=== PATIENT | male | born 1955 | race Caucasian/White ===

== ENCOUNTER 2018-10-08 17:50 | Inpatient (IN) | payer BC, OTHER ==
[~2018-10-08] VITALS: Ht 182.9 cm; Wt 152.4 kg
[2018-10-08] VITALS (8 sets, daily range): BP systolic 77–131; BP diastolic 45–81
[~2018-10-08 17:50] MED LIST: AMIODARONE (OMNICELL DRIP KIT) 150 MG/3 ML IV ONE; AMIODARONE 450 MG/9 ML (CORDARONE) VIAL IV ONE; D5W 250 ML (EXCEL) BAG IV ONE; HEParin (CATH LAB) 2,000 UNIT/1,000 ML BAG IV ONE; LIDOCAINE 1% INJ 20 ML 20 ML VIAL INJ ONE; NS 1000 ML IV BAG IV ONE
[2018-10-08 18:19] LABS: BASOPHILS % (AUTO) 0 % (0-10); EOSINOPHILS # (AUTO) 0.2 10^3/uL (0.0-0.3); EOSINOPHILS % (AUTO) 2 % (0-10); HEMATOCRIT 47 % (40-54); HEMOGLOBIN 15.9 G/DL (13.3-17.7); LYMPHOCYTES # (AUTO) 3.2 X 10^3 (1.0-4.0); LYMPHOCYTES % (AUTO) 37 % (12-44); MEAN CORPUSCULAR HEMOGLOBIN 30 PG (25-34); MEAN CORPUSCULAR HGB CONC 34 G/DL (32-36); MEAN CORPUSCULAR VOLUME 87 FL (80-99); MEAN PLATELET VOLUME 9.9 FL (7.4-10.4); MONOCYTES # (AUTO) 0.7 X 10^3 (0.0-1.0); MONOCYTES % (AUTO) 8 % (0-12); NEUTROPHILS # (AUTO) 4.6 X 10^3 (1.8-7.8); NEUTROPHILS % (AUTO) 52 % (42-75); PLATELET COUNT 243 10^3/uL (130-400); WHITE BLOOD COUNT 8.7 10^3/uL (4.3-11.0)
[2018-10-08 18:30] LABS: PROTHROMBIN TIME PATIENT 13.5 SEC (12.2-14.7)
--- NOTE | 2018-10-08 18:30 | Diagnostic Imaging Report ---
INDICATION: Chest pain. FINDINGS: Portable chest. Lungs are well-aerated and clear. Heart is not enlarged. There is no pulmonary edema. No pneumothorax or pleural effusion. No bony abnormalities. IMPRESSION: Normal portable chest. Dictated by: Dictated on workstation # [id number]
[2018-10-08 18:39] LABS: ALANINE AMINOTRANSFERASE 23 U/L (0-55); ALBUMIN 4.3 GM/DL (3.2-4.5); ALKALINE PHOSPHATASE 87 U/L (40-136); AMYLASE 38 U/L (25-125); BILIRUBIN,TOTAL 0.8 MG/DL (0.1-1.0); BUN/CREATININE RATIO 15; CALCIUM 9.5 MG/DL (8.5-10.1); CARBON DIOXIDE 23 MMOL/L (21-32); CHLORIDE 101 MMOL/L (98-107); CREATININE SERUM 0.89 MG/DL (0.60-1.30); GFR ESTIMATED > 60; GLUCOSE 130 MG/DL (70-105); LIPASE 17 U/L (8-78); POTASSIUM 3.9 MMOL/L (3.6-5.0); SODIUM 137 MMOL/L (135-145); TOTAL PROTEIN 7.5 GM/DL (6.4-8.2)
[2018-10-08 18:45] LABS: MYOGLOBIN SERUM 106.6 NG/ML (10.0-92.0)
[2018-10-08] MEDS ORDERED: NITROGLYCERIN 0.4 MG SL TABS BTL 25'S SL ONE (19:00)
[2018-10-08] MEDS ORDERED: EPINEPHrine 0.1 MG/ML 10 ML (HOSPIRA) SYR INJ ONE (19:05)
--- NOTE | 2018-10-08 19:05 | NUR ---
AFTER ADMINISTERING PATIENT NITRO SL PT STATES FEELING DIZZY. PT BIJAN IN 49-50. OXYGEN NC APPLIED. HOB FLAT. AFTER A MIN PT HR STARTED INCREASING. PT STATED DIZZINESS GETTING BETTER. STATES NO CHANGE IN PAIN.
--- NOTE | 2018-10-08 19:15 | ED Chest Pain ---
General Chief Complaint: Cardiac/General Problems Stated Complaint: CP Nursing Triage Note: pt complaint of chest pain on/off today. new onset diabetic Nursing Sepsis Screen: No Definite Risk Source: patient, EMS Exam Limitations: no limitations History of Present Illness Date Seen by Provider: Oct 08, 2018 Time Seen by Provider: 17:58 Initial Comments This 63-year-old gentleman presents to the emergency room via EMS with complaints of chest pain. He reports having this mild central chest pain for several years. This morning he had an episode of chest pain that started in the shower. It resolved with rest. He went to his primary care provider, Dr. Carl Tsyon, but did not mention the chest pain because it had resolved by that time. At his doctor's appointment he was diagnosed with diabetes based on an elevated A1c. This evening he was speaking with a friend on the phone when the pain returned. The pain is in his central chest and also involves the jaw and bilateral upper arms. Patient was given aspirin and nitroglycerin by EMS. His initial pain was rated as 4-5. After nitroglycerin he rated his pain as 2. It then dissipated to zero. Patient admits to having a problem with anxiety. He has been treated for a Xanax diction the past. He currently takes Klonopin twice a day. He has never had any type of cardiac workup. He recently quit smoking and now vapes. Allergies and Home Medications Allergies Coded Allergies: Penicillins (Unverified Allergy, Mild, 10/08/18) clindamycin (Unverified Allergy, Mild, 10/08/18) Patient Home Medication List Home Medication List Reviewed: Yes Review of Systems Review of Systems Constitutional: no symptoms reported EENTM: No Symptoms Reported Respiratory: No Symptoms Reported Cardiovascular: See HPI Gastrointestinal: No Symptoms Reported Genitourinary: No Symptoms Reported Musculoskeletal: no symptoms reported Skin: no symptoms reported Psychiatric/Neurological: No Symptoms Reported Endocrine: No Symptoms Reported Hematologic/Lymphatic: No Symptoms Reported Past Nztwjph-Rlausl-Lonkjo Hx Past Med/Social Hx: Reviewed and Corrections made Patient Social History Recent Foreign Travel: No Contact w/Someone Who Travel: No Recent Infectious Disease Expo: No Past Medical History Surgeries: Yes Orthopedic (Knee arthroscopy), Tonsillectomy Respiratory: No Cardiac: Yes Hypertension Neurological: No Reproductive Disorders: No Genitourinary: No Gastrointestinal: Yes Gastroesophageal Reflux Musculoskeletal: No Endocrine: Yes Diabetes, Non-Insulin dep HEENT: No Cancer: No Did You Recieve Any Treatments: No Psychosocial: Yes Anxiety Integumentary: No Physical Exam Vital Signs Vital Signs - First Documented 10/08/18 10/08/18 17:58 19:05 Temp 98.9 Pulse 93 Resp 18 B/P (MAP) 153/103 (120) Pulse Ox 98 O2 Delivery Room Air O2 Flow Rate 2.00 Capillary Refill : Less Than 3 Seconds Height, Weight, BMI Height: 5'8.00" Weight: 200lbs. oz. 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 Skin: Normal Color, Warm/Dry Critical Care Note Critical Care Start Time: 20:20 Stop Time: 20:44 Total Time (minutes) 24 Progress/Results/Core Measures Results/Orders Lab Results Laboratory Tests Test 10/08/18 18:08 Range/Units White Blood Count 8.7 4.3-11.0 10^3/uL Red Blood Count 5.39 4.35-5.85 10^6/uL Hemoglobin 15.9 13.3-17.7 G/DL Hematocrit 47 40-54 % Mean Corpuscular Volume 87 80-99 FL Mean Corpuscular Hemoglobin 30 25-34 PG Mean Corpuscular Hemoglobin Concent 34 32-36 G/DL Red Cell Distribution Width 13.0 10.0-14.5 % Platelet Count 243 130-400 10^3/uL Mean Platelet Volume 9.9 7.4-10.4 FL Neutrophils (%) (Auto) 52 42-75 % Lymphocytes (%) (Auto) 37 12-44 % Monocytes (%) (Auto) 8 0-12 % Eosinophils (%) (Auto) 2 0-10 % Basophils (%) (Auto) 0 0-10 % Neutrophils # (Auto) 4.6 1.8-7.8 X 10^3 Lymphocytes # (Auto) 3.2 1.0-4.0 X 10^3 Monocytes # (Auto) 0.7 0.0-1.0 X 10^3 Eosinophils # (Auto) 0.2 0.0-0.3 10^3/uL Basophils # (Auto) 0.0 0.0-0.1 10^3/uL Prothrombin Time 13.5 12.2-14.7 SEC INR Comment 1.0 0.8-1.4 Activated Partial Thromboplast Time 30 24-35 SEC D-Dimer 0.46 0.00-0.49 UG/ML Sodium Level 137 135-145 MMOL/L Potassium Level 3.9 3.6-5.0 MMOL/L Chloride Level 101 98-107 MMOL/L Carbon Dioxide Level 23 21-32 MMOL/L Anion Gap 13 5-14 MMOL/L Blood Urea Nitrogen 13 7-18 MG/DL Creatinine 0.89 0.60-1.30 MG/DL Estimat Glomerular Filtration Rate > 60 BUN/Creatinine Ratio 15 Glucose Level 130 H 70-105 MG/DL Calcium Level 9.5 8.5-10.1 MG/DL Corrected Calcium 9.3 8.5-10.1 MG/DL Magnesium Level 2.0 1.8-2.4 MG/DL Total Bilirubin 0.8 0.1-1.0 MG/DL Aspartate Amino Transf (AST/SGOT) 26 5-34 U/L Alanine Aminotransferase (ALT/SGPT) 23 0-55 U/L Alkaline Phosphatase 87 40-136 U/L Myoglobin 106.6 H 10.0-92.0 NG/ML Troponin I < 0.028 <0.028 NG/ML B-Type Natriuretic Peptide 17.7 <100.0 PG/ML Total Protein 7.5 6.4-8.2 GM/DL Albumin 4.3 3.2-4.5 GM/DL Amylase Level 38 25-125 U/L Lipase 17 8-78 U/L My Orders Orders - DOLLY STOLL MD Nitroglycerin 0.4 Mg Btl 25's (Nitrostat (10/08/18 19:00) Dopamine Drip (Dopamine Drip) (10/08/18 20:45) Morphine Injection (Morphine Injection (10/08/18 21:00) Medications Given in ED Current Medications Medications Dose Ordered Sig/Guillaume Route Start Time Stop Time Status Last Admin Dose Admin Heparin Sodium (Porcine) 10,000 unit STK-MED ONCE .ROUTE 10/08/18 20:38 10/08/18 20:41 DC 10/08/18 20:38 10,000 UNIT Nitroglycerin 0.4 mg STK-MED ONCE SL 10/08/18 19:00 10/08/18 19:03 DC 10/08/18 19:00 0.4 MG Ondansetron HCl 4 mg STK-MED ONCE .ROUTE 10/08/18 20:26 10/08/18 20:28 DC 10/08/18 20:27 4 MG Sodium Chloride 1,000 ml @ ud STK-MED ONCE .ROUTE 10/08/18 20:38 10/08/18 20:41 DC 10/08/18 20:38 1,000 MLS/HR Sodium Chloride 1,000 ml @ ud STK-MED ONCE .ROUTE 10/08/18 20:50 10/08/18 20:53 DC 10/08/18 20:50 1,000 MLS/HR Vital Signs/I&O 10/08/18 10/08/18 10/08/18 10/08/18 17:58 19:05 20:45 20:50 Temp 98.9 Pulse 93 110 110 Resp 18 14 B/P (MAP) 153/103 (120) 76/43 77/45 Pulse Ox 98 92 91 O2 Delivery Room Air Nasal Cannula Nasal Cannula O2 Flow Rate 2.00 5.00 10/08/18 10/08/18 10/08/18 20:55 20:56 21:00 Pulse 113 124 126 Resp 16 16 B/P (MAP) 77/45 (56) 107/52 107/52 (70) Pulse Ox 92 91 O2 Delivery Room Air Room Air Blood Pressure Mean: 120 Progress Progress Note #1: Time: 19:10 Progress Note Patient reported improvement in his symptoms with nitroglycerin initially. At 18:54 he had some mild discomfort primarily in the bilateral arms, jaw, and back. He rates the discomfort as 3-4/10. A second nitroglycerin was given. He felt lightheaded and developed some bradycardia down to around 48 after the second dose of nitroglycerin. However, did not seem to improve his discomfort. Progress Note #2: Time: 20:00 Progress Note Repeat nitroglycerin caused lightheadedness and a drop in heart rate down to the upper 40s. Patient was uncomfortable with this. The nitroglycerin did not improve his discomfort in his arms, back, and jaw. I discussed the case with Dr. Hughes. We are in agreement admission for observation is most appropriate for this patient given his risk factors. He is to be nothing by mouth after midnight in preparation for further testing. Admission discussed with patient who is agreeable. I will order his home medications for him to continue taking. Dr. Lizama was also contacted and was agreeable with admission to the hospitalist service. Progress Note #3: Time: 20:36 Progress Note I called to patient room at 20:20 as patient became unresponsive. Rhythm on the monitor suggested ventricular fibrillation. Patient lost pulse and was unresponsive. CPR was initiated. Patches were applied and shock was administered at 200 J at 20:22. CPR continued and epinephrine 1 mg was administered. Patient did eventually wake and regained an organized rhythm. Pulse was palpable and blood pressures were measurable at 20:24. EKG was obtained after CPR and showed sinus tachycardia with ST elevation [place]. Patient was alert and oriented by 20:26. Dr. Hughes was called during the code and again after EKG interpretation. Monitoring Tech was activated immediately upon noting the ST elevation. Patient was dry heaving upon waking after CPR. Zofran 8 mg IV was administered. Dr. Hughes was present by 20:35. Progress Note #4: Time: 20:[address] Hughes is present with patient. He has become hypotensive but is still awake and alert. IV fluids are infusing. Dopamine drip has been initiated. Monitoring Tech has been activated. Patient will be taken promptly to Monitoring Tech when team is ready. Dr. Hughes has assumed care of the patient. Initial ECG Impression Date: Oct 08, 2018 Initial ECG Impression Time: 17:53 Initial ECG Rate: 90 Initial ECG Rhythm: Normal Sinus Initial ECG Intervals: Normal Initial ECG Impression: Normal Comment Normal sinus rhythm with no ST elevation or depression. No abnormal intervals or axis deviation. EKG : EKG Time: 20:29 Rate: 113 Rhythm: S.Tach Comment Sinus tachycardia with ST elevation. Acute [place]. Diagnostic Imaging Diagonstic Imaging: Xray Plain Films/CT/US/NM/MRI: chest Departure Communication (Admissions) Time/Spoke to Admitting Phy: 19:45 Dr. Richardson Time/Spoke to Consulting Phy: 19:40 Dr. Hughes Impression Primary Impression: ST elevation [place] (STEMI) Qualified Codes: I21.3 - ST elevation (STEMI) myocardial infarction of unspecified site Additional Impressions: Chest pain Qualified Codes: R07.9 - Chest pain, unspecified Ventricular fibrillation Disposition: 09 ADMITTED INPATIENT Condition: Improved Admissions Decision to Admit Reason: Admit from ER (General) Decision to Admit/Date: Oct 08, 2018 Time/Decision to Admit Time: 19:40 Departure-Patient Inst. Referrals: UNKNOWN (PCP/Family) Primary Care Physician DOLLY STOLL MD Oct 08, 2018 19:15
[2018-10-08] MEDS ORDERED: ONDANSETRON 4 MG/2 ML (SDV) Z0FRAN ONE ×2 (20:26→21:44)
[2018-10-08] MEDS ORDERED: HEParin 1000 UNIT/ML (10ML VIAL) FOR BOLUS ONE ×2 (20:38→21:05)
[2018-10-08] MEDS ORDERED: NS IV 1000 ML 1,000 ML ONE ×2 (20:38→20:50)
[2018-10-08] MEDS ORDERED: DOPamine DRIP 250 ML IV ONE (20:43)
[2018-10-08] MEDS: DOPamine DRIP 250 ML IV SCH ×5 (20:45→21:57)
--- NOTE | 2018-10-08 20:56 | NUR ---
PT FEELING "FUNNY IN CHEST -PRESSURE" DOPAMIN DECREASED [address] NOTIFIED. MORPHINE ORDERED.
[2018-10-08] MEDS ORDERED: morphine INJ 10 MG/ML 1ML (SYR OR VIAL) IVP STA (21:00)
--- NOTE | 2018-10-08 21:02 | Consultation-Cardiology ---
HPI-Cardiology Cardiology Consultation Date of Consultation 10/08/18 Date of Admission Time Seen by Provider: 20:58 Indication: chest pain HPI 63 years old gentleman recently diagnosed with diabetes mellitus, history of hypertension and tobaccoism. Has been having recurrent chest pain for the past year on and off. Became worse today and called ambulance and brought to the emergency room, given sublingual nitroglycerin with appropriate relief of his chest pain. He was waiting for bed in the emergency room when he had an episode of syncope and had a ventricular tachycardia, received epinephrine and chest compression and a shock. Restored sinus rhythm, patient was having nausea and vomiting. Denied any active chest pain, was diaphoretic, postcode EKG showed ST elevation in the inferior lead which was not present on arrival to the emergency room Home Medications & Allergies Allergies: Coded Allergies: Penicillins (Unverified Allergy, Mild, 10/08/18) clindamycin (Unverified Allergy, Mild, 10/08/18) Home Medication List Reviewed: Yes [id number] Hx Patient Social History Marital Status: Employed/Student: employed Recent Foreign Travel: No Recent Infectious Disease Expo: No Past Medical History as described below Family Medical History Family Medical Hx family history of heart disease Review of Systems Constitutional: see HPI, diaphoresis EENTM: see HPI, no symptoms reported Respiratory: see HPI; No cough, No dyspnea on exertion, No hemoptysis, No orthopnea, No phlegm, No short of breath, No stridor, No wheezing, No other Cardiovascular: see HPI, chest pain; No edema, No Hx of Intervention, No palpitations; syncope; No vascular heart diseas, No other Gastrointestinal: no symptoms reported, see HPI Genitourinary: no symptoms reported, see HPI Musculoskeletal: no symptoms reported, see HPI Skin: no symptoms reported, see HPI Psychiatric/Neurological: No Symptoms Reported, See HPI Reviewed Test Results Reviewed Test Results Lab Laboratory Tests Test 10/08/18 18:08 Range/Units White Blood Count 8.7 4.3-11.0 10^3/uL Red Blood Count 5.39 4.35-5.85 10^6/uL Hemoglobin 15.9 13.3-17.7 G/DL Hematocrit 47 40-54 % Mean Corpuscular Volume 87 80-99 FL Mean Corpuscular Hemoglobin 30 25-34 PG Mean Corpuscular Hemoglobin Concent 34 32-36 G/DL Red Cell Distribution Width 13.0 10.0-14.5 % Platelet Count 243 130-400 10^3/uL Mean Platelet Volume 9.9 7.4-10.4 FL Neutrophils (%) (Auto) 52 42-75 % Lymphocytes (%) (Auto) 37 12-44 % Monocytes (%) (Auto) 8 0-12 % Eosinophils (%) (Auto) 2 0-10 % Basophils (%) (Auto) 0 0-10 % Neutrophils # (Auto) 4.6 1.8-7.8 X 10^3 Lymphocytes # (Auto) 3.2 1.0-4.0 X 10^3 Monocytes # (Auto) 0.7 0.0-1.0 X 10^3 Eosinophils # (Auto) 0.2 0.0-0.3 10^3/uL Basophils # (Auto) 0.0 0.0-0.1 10^3/uL Prothrombin Time 13.5 12.2-14.7 SEC INR Comment 1.0 0.8-1.4 Activated Partial Thromboplast Time 30 24-35 SEC D-Dimer 0.46 0.00-0.49 UG/ML Sodium Level 137 135-145 MMOL/L Potassium Level 3.9 3.6-5.0 MMOL/L Chloride Level 101 98-107 MMOL/L Carbon Dioxide Level 23 21-32 MMOL/L Anion Gap 13 5-14 MMOL/L Blood Urea Nitrogen 13 7-18 MG/DL Creatinine 0.89 0.60-1.30 MG/DL Estimat Glomerular Filtration Rate > 60 BUN/Creatinine Ratio 15 Glucose Level 130 H 70-105 MG/DL Calcium Level 9.5 8.5-10.1 MG/DL Corrected Calcium 9.3 8.5-10.1 MG/DL Magnesium Level 2.0 1.8-2.4 MG/DL Total Bilirubin 0.8 0.1-1.0 MG/DL Aspartate Amino Transf (AST/SGOT) 26 5-34 U/L Alanine Aminotransferase (ALT/SGPT) 23 0-55 U/L Alkaline Phosphatase 87 40-136 U/L Myoglobin 106.6 H 10.0-92.0 NG/ML Troponin I < 0.028 <0.028 NG/ML B-Type Natriuretic Peptide 17.7 <100.0 PG/ML Total Protein 7.5 6.4-8.2 GM/DL Albumin 4.3 3.2-4.5 GM/DL Amylase Level 38 25-125 U/L Lipase 17 8-78 U/L Physical Exam Vital Signs Vital Signs - First Documented 10/08/18 17:58 Temp 98.9 Pulse 93 Resp 18 B/P (MAP) 153/103 (120) Pulse Ox 98 O2 Delivery Room Air Capillary Refill : Less Than 3 Seconds Height, Weight, BMI Height: 5'8.00" Weight: 200lbs. oz. [id number]; BMI Method:Estimated General Appearance: No Apparent Distress, WD/WN Eyes: Bilateral Eye Normal Inspection, Bilateral Eye PERRL, Bilateral Eye EOMI HEENT: PERRL/EOMI, TMs Normal, Normal ENT Inspection, Pharynx Normal Neck: Full Range of Motion, Normal Inspection, Non Tender, Supple, Carotid Bruit Respiratory: Chest Non Tender, Lungs Clear, Normal Breath Sounds, No Accessory Muscle Use, No Respiratory Distress Cardiovascular: Regular Rate, Rhythm, No Edema, No Gallop, No JVD, No Murmur, Normal Peripheral Pulses Gastrointestinal: Normal Bowel Sounds, No Organomegaly, No Pulsatile Mass, Non Tender, Soft Back: Normal Inspection, No CVA Tenderness, No Vertebral Tenderness Extremity: Normal Capillary Refill, Normal Inspection, Normal Range of Motion, Non Tender, No Calf Tenderness, No Pedal Edema Neurologic/Psychiatric: Alert, Oriented x3, No Motor/Sensory Deficits, Normal Mood/Affect Skin: Normal Color, Warm/Dry Lymphatic: No Adenopathy A/P-Cardiology Admission Diagnosis Chest pain Ventricular tachycardia Hypotensive shock, cardiogenic shock Diabetes mellitus Assessment/Plan Chest pain, waxing and waning, worse today, unstable angina, status post cardiac arrest with ventricular tachycardia and shock, had ST elevation post code. Planning to proceed with emergency cardiac catheterization, given 5000 units of heparin, received aspirin by EMS Sudden cardiac , ventricular tachycardia, status post chest compression, epinephrine and shock. Restored sinus rhythm. Diaphoresis and shortness of breath post code, continue to monitor at this time Hypotensive shock, cardiogenic shock, receiving IV fluids, started on dopamine drip History of hypertension untreated. Diabetes mellitus, diagnosed today. Hyperlipidemia, we will initiate statin Obesity, BMI 30, discussed weight loss and exercise after managing his AK Questionable underlying sleep apnea, patient reported that he was tested in the past and it was negative CAROLYN GALAVIZ MD Oct 08, 2018 21:02
--- NOTE | 2018-10-08 21:03 | Cardiac Procedure Note-CS/ASA ---
Pre-Procedure Note Pre-Op Procedure Note H&P Reviewed The H&P was reviewed, patient examined and no changes noted. Date H&P Reviewed: Oct 08, 2018 Time H&P Reviewed: 21:02 Conscious Sedation Pre-Proced Time 21:02 ASA Score 3 For ASA 3 and 4: Consider anesthesia and medical clearance. Also, for patients with a history of failed moderate sedation consider anesthesia. Airway Lungs Heart ASA score ASA 1: a normal healthy patient ASA 2: a patient with a mild systemic disease (mid diabetes, controlled hypertension, obesity x ASA 3: a patient with a severe systemic disease that limits activity (angina , COPD, prior Myocardial infarction) ASA 4: a patient with an incapacitating disease that is a constant threat to life (CHF, renal failure) ASA 5: a moribund patient not expected to survive 24 hrs. (ruptured aneurysm) ASA 6: a declared brain- patient whose organs are being harvested. For emergent operations, add the letter E after the classification Mallampati Classification Grade 3 Sedation Plan Analgesia, Amnesia, Plan communicated to team members, Discussed options with patient/fam, Discussed risks with patient/fam The patient is an appropriate candidate to undergo the planned procedure, sedation, and anesthesia. The patient immediately re-assessed prior to indication. CAROLYN GALAVIZ MD Oct 08, 2018 21:03
[2018-10-08] MEDS ORDERED: MIDAZOLAM 5 MG/5 ML (VERSED) VIAL ONE (21:05)
[2018-10-08] MEDS ORDERED: fentaNYL INJECTION 100 MCG/2 ML AMP ONE (21:05)
[2018-10-08] MEDS ORDERED: EPTIFIBATIDE BOLUS 20 ML IV ONE (21:28)
[2018-10-08] MEDS ORDERED: NS (IVPB) 250 ML ONE (21:35)
[2018-10-08] MEDS ORDERED: niCARdipine 25 MG/10 ML (CARDENE) AMP IV ONE (21:35)
[2018-10-08] MEDS ORDERED: ASPIRIN 325 MG (5 GR) TABLET ONE (21:53)
[2018-10-08] MEDS ORDERED: TICAGRELOR 90 MG TABLET (BRILINTA) PO ONE (21:53)
[2018-10-08] MEDS ORDERED: NS IV 1000 ML 1,000 ML IV SCH (21:55)
[2018-10-08] MEDS ORDERED: PANTOPRAZOLE 40 MG (PROTONIX) VIAL IV ONE (22:00)
[2018-10-08] MEDS ORDERED: PATIENT MAY USE OWN MEDS, ALL PO SCH (22:00)
--- NOTE | 2018-10-08 22:07 | Cardiac Cath Report ---
Cardiac Cath Report Physician (s)/Marine Engine Machinist (s) Physician CAROLYN GALAVIZ MD Pre-Procedure Diagnosis Pre-Procedure Diagnosis: acute myocardial infarction Post-Procedure Note Procedure Start Date: Oct 08, 2018 Name of Procedure: left heart catheterization Left ventriculogram Stent to the right coronary artery Findings/Procedure Note PROCEDURE NOTE: 63 years old gentleman with recently diagnosed diabetes mellitus has been having stuttering chest pain, had significant chest pain this evening, called 911 and given nitroglycerin with appropriately for his chest pain upon arrival to the emergency room. He was admitted to be monitored, EKG and cardiac enzymes did not show any acute abnormality. While patient in the emergency room waiting for his bed on the floor he had a syncope with ventricular tachycardia and cardiac arrest CODE CEZAR was called, given epinephrine and received chest compression and a shock lasted within 2 minutes and restored pulse, had significant nausea and vomiting. EKG showed ST elevation no onset occurred at 820 p.m. Catheter lab team was activated, acute MS team was activated. After explaining the procedure to the patient, all pros and cons were explained , all questions were answered. The patient signed the consent and then he was placed on the cardiac catheterization laboratory. Groin was prepped SL fashion local anesthesia was used. Sheath placed in the Right femoral artery. [place] right and left catheter were used to access the coronary system. Pigtail was used to access the left ventricular cavity. Left ventriculogram was done at the end of the procedure Patient received 5000 units of heparin in the emergency room, double bolus Integrilin in the catheter lab, noted to have total occlusion of the right coronary artery I was able to cross the lesion with difficulty in the midright coronary artery predilatation with 2.5 balloon was done then I deployed a 2.5 23 mm Martha stent expanded distally to 2.75 mm and proximally to 3.2 mm. At the proximal portion of the right coronary artery there was an area of 95 percent stenosis I deployed 3.012 mm Martha stent expanded with noncompliant balloon to 3.6 mm with excellent results, slow flow was noted, given Cardene with appropriate relief. At the end of the procedure the sheath was removed. Closure device was used FINDINGS: Hemodynamics LV 84/15, end-diastolic pressure of 15 Aorta 88/63 mean of 58 and a significant gradient ANATOMY: Left Main is free of obstructive disease Left Anterior Descending is mildly tortuous with mild disease nonobstructive disease Left Circumflex is moderate in size with mild disease nonobstructive disease Right Coronory Artery is dominant artery with total occlusion at the midportion and severe stenosis proximally successful deployment of Martha stent 2.523 mm expanded to 2.6 mm distally and 3.2 mm proximally, deployment at the proximal right coronary artery of Martha stent 312 mm expanded to 3.6 mm with excellent results. The artery tapered down into a small artery distally. Onset of symptom with ventricular tachycardia and ST elevation was at 820 p.m. establishment of flow with balloon angioplasty was at 934 p.m. dose or to establishment of flow is 74 minutes LV Gram was done showed dilated left ventricle with preserved systolic function estimated ejection fraction 50 percent CONCLUSION: 1. Cardiogenic shock with acute ST elevation myocardial infarctions and occlusion of the right coronary artery and ventricular tachycardia required shock and epinephrine 2. Total occlusion of the right coronary artery at the midportion and severe stenosis proximally deployment of maximal stent 3.012 mm Martha expanded to 3.6 mm and at the midportion Martha 2.523 mm expanded distally to 2.6 mm approximately 3.2 mm with excellent results slow flow distally given Cardene with good results 3. Mild disease in the LAD and circumflex artery 4. Prominent left ventricle with preserved systolic pressure estimated ejection fraction 50 percent DISCUSSION AND RECOMMENDATION: I will continue maximizing medical therapy Anesthesia Type: Conscious Sedation Estimated blood loss (mL): 25 ml Contrast Amount: 123 ml Total Radiation Dose: 1437 mGy Post-Procedure Diagnosis Post-operative diagnosis: Acute myocardial infarction Cardiogenic shock Ventricular tachycardia Coronary artery disease CAROLYN GALAVIZ MD Oct 08, 2018 22:07
[2018-10-08] MEDS ORDERED: METOCLOPRAMIDE INJ 10 MG/2 ML (REGLAN) ONE (22:14)
[2018-10-08] MEDS: AMIODARONE INJECTION 450 MG in D5W IV SOLUTION (EXCEL) 250 ML IV SCH (22:41)
[2018-10-09] VITALS (26 sets, daily range): BP systolic 102–168; BP diastolic 61–115
[2018-10-09] MEDS ORDERED: clonazePAM 1 MG (KlonoPIN) TAB PO ONE (00:45)
[2018-10-09] MEDS ORDERED: PANTOPRAZOLE 40 MG (PROTONIX) TAB PO ONE (01:14)
[2018-10-09] MEDS ORDERED: PANTOPRAZOLE 40 MG (PROTONIX) VIAL ONE (01:16)
[2018-10-09 04:05] LABS: BASOPHILS % (AUTO) 0 % (0-10); EOSINOPHILS % (AUTO) 0 % (0-10); HEMATOCRIT 42 % (40-54); HEMOGLOBIN 14.8 G/DL (13.3-17.7); LYMPHOCYTES % (AUTO) 9 % (12-44); MEAN CORPUSCULAR HEMOGLOBIN 31 PG (25-34); MEAN CORPUSCULAR HGB CONC 35 G/DL (32-36); MEAN CORPUSCULAR VOLUME 87 FL (80-99); MEAN PLATELET VOLUME 9.7 FL (7.4-10.4); MONOCYTES # (AUTO) 0.5 X 10^3 (0.0-1.0); MONOCYTES % (AUTO) 5 % (0-12); NEUTROPHILS # (AUTO) 9.6 X 10^3 (1.8-7.8); NEUTROPHILS % (AUTO) 86 % (42-75); PLATELET COUNT 252 10^3/uL (130-400); RED CELL DISTRIBUTION WIDTH 13.3 % (10.0-14.5); WHITE BLOOD COUNT 11.2 10^3/uL (4.3-11.0)
[2018-10-09 04:27] LABS: BUN/CREATININE RATIO 16; CALCIUM 8.4 MG/DL (8.5-10.1); CARBON DIOXIDE 20 MMOL/L (21-32); CHLORIDE 105 MMOL/L (98-107); CHOLESTEROL 120 MG/DL (< 200); CREATININE SERUM 1.03 MG/DL (0.60-1.30); GFR ESTIMATED > 60; GLUCOSE 222 MG/DL (70-105); HDL CHOLESTEROL 40 MG/DL (40-60); MAGNESIUM 1.8 MG/DL (1.8-2.4); PHOSPHORUS 2.6 MG/DL (2.3-4.7); POTASSIUM 4.5 MMOL/L (3.6-5.0); SODIUM 135 MMOL/L (135-145); TRIGLYCERIDES 91 MG/DL (<150); VLDL CHOLESTEROL 18 MG/DL (5-40)
--- NOTE | 2018-10-09 05:59 | Pulmonary Consultation ---
History of Present Illness History of Present Illness Date of Consultation 10/09/18 05:52 Time Seen by Provider: 05:52 Date of Admission Reason for Visit: chest pain History of Present Illness 63yo with hx of DM, HTN, tobacco use, vapor cig use presented to ED secondary to CP worsening over the last 24hours. While in ED he had an episode of Vtach and syncope. He was given a dose of epi and chest compressions were done. PT regained ROSC, EKG showed a STEMI and he was taken to [facility]. I am consulted for ICU management. Allergies and Home Medications Allergies Coded Allergies: Penicillins (Unverified Allergy, Mild, 10/08/18) clindamycin (Unverified Allergy, Mild, 10/08/18) Past Zhguivt-Rwnnqi-Aodbji Hx Past Med/Social Hx: Reviewed and Corrections made Patient Social History Alcohol Use: Denies Use Recreational Drug Use: No Recent Foreign Travel: No Contact w/Someone Who Travel: No Recent Infectious Disease Expo: No Immunizations Up To Date Date of Influenza Vaccine: Jun 16, 2018 Past Medical History Surgeries: Yes Orthopedic (Knee arthroscopy), Tonsillectomy Respiratory: No Cardiac: No Hypertension Neurological: No Reproductive Disorders: No Genitourinary: No Gastrointestinal: Yes Gastroesophageal Reflux Musculoskeletal: No Endocrine: Yes Diabetes, Non-Insulin dep HEENT: No Cancer: No Did You Recieve Any Treatments: No Psychosocial: Yes Anxiety, Depression Integumentary: No Blood Disorders: No Sepsis Event Evaluation Height, Weight, BMI Height: 6'0.00" Weight: 335lbs. 0.0oz. 151.751642cx; 45.4 BMI Method:Estimated Exam Exam Vital Signs Date Time Temp Pulse Resp B/P (MAP) Pulse Ox O2 Delivery O2 Flow Rate FiO2 10/09/18 05:00 72 32 136/94 (108) 93 Room Air 10/09/18 04:00 79 22 123/81 (95) 92 Room Air 10/09/18 03:00 76 13 105/71 (82) 95 Room Air 10/09/18 02:40 75 21 111/82 (92) 97 Room Air 10/09/18 02:00 75 21 114/80 (91) 95 Nasal Cannula 3.00 10/09/18 01:30 75 16 110/79 (89) 96 Nasal Cannula 3.00 10/09/18 01:00 78 10/09/18 01:00 78 15 102/76 (85) 95 Nasal Cannula 3.00 10/09/18 00:30 80 17 107/80 (89) 97 Nasal Cannula 5.00 10/09/18 00:00 93 13 104/78 (87) 95 Nasal Cannula 5.00 10/08/18 23:47 105 14 119/81 (94) 96 Nasal Cannula 5.00 10/08/18 23:41 Nasal Cannula 5.00 10/08/18 23:30 116 15 100/74 (83) 92 Nasal Cannula 5.00 10/08/18 23:15 112 14 131/75 (93) 92 Nasal Cannula 5.00 10/08/18 23:00 111 16 131/69 (89) 91 Nasal Cannula 5.00 10/08/18 22:56 105 13 110/69 (83) 92 Nasal Cannula 5.00 10/08/18 22:47 90 10/08/18 22:47 87 12 91/61 (71) 90 Nasal Cannula 5.00 10/08/18 22:41 95 Nasal Cannula 5.00 10/08/18 21:10 131 14 98/65 (76) 94 Room Air 10/08/18 21:05 135 99/48 10/08/18 21:00 126 16 107/52 (70) 91 Room Air 10/08/18 20:56 124 107/52 10/08/18 20:55 113 16 77/45 (56) 92 Room Air 10/08/18 20:50 110 77/45 10/08/18 20:45 110 14 76/43 91 Nasal Cannula 5.00 10/08/18 19:05 92 Nasal Cannula 2.00 10/08/18 17:58 98.9 93 18 153/103 (120) 98 Room Air I & O 10/09/18 07:00 Intake Total 20 ml Balance 20 ml Height & Weight Height: 6'0.00" Weight: 335lbs. 0.0oz. 151.647618cq; 45.4 BMI Method:Estimated General Appearance: No Apparent Distress, WD/WN, Obese HEENT: PERRL/EOMI, Normal ENT Inspection Neck: Normal Inspection Respiratory: Chest Non Tender, Lungs Clear, Normal Breath Sounds, No Accessory Muscle Use, No Respiratory Distress Cardiovascular: Regular Rate, Rhythm, No Edema, No Murmur Capillary Refill: Less Than 3 Seconds Extremity: Normal Capillary Refill, Non Tender, No Calf Tenderness, No Pedal Edema Neurologic/Psychiatric: Alert, Oriented x3, No Motor/Sensory Deficits, Normal Mood/Affect, cultural historian II-XII Norm as Tested Skin: Normal Color, Warm/Dry Lymphatic: No Adenopathy Results Lab Laboratory Tests 10/08/18 18:08 10/09/18 03:35 Assessment/Plan Assessment/Plan STEMI s/p cath with stenting to RCA S/p Vtach, hypotension, cardiogenic shock s/p code blue/ACLS -Amio gtt -Dopamine gtt - now off Obesity with probable WESTLEY -Will do out pt testing tobacco use/Vapor cigs -Education -Out pt testing -Pt will need ambulatory desat test prior to discharge. LISA KARIMI DO Oct 09, 2018 05:58
[2018-10-09] MEDS ORDERED: POTASSIUM CL 10MEQ/50ML IVPB 50 ML IV SCH (06:00)
[2018-10-09] MEDS ORDERED: KCL 20 MEQ TAB (K-DUR) PO SCH (06:00)
[2018-10-09] MEDS ORDERED: MAGNESIUM 1 GM/100 ML IVPB 100 ML IV SCH (06:00)
[2018-10-09] MEDS ORDERED: AMIODARONE 450 MG/9 ML (CORDARONE) VIAL IV ONE ×2 (06:15→06:21)
[2018-10-09] MEDS ORDERED: NORMAL SALINE 250 ML ONE (06:15)
[2018-10-09] MEDS ORDERED: D5W IV SOLUTION (EXCEL) 250 ML IV ONE (06:21)
[2018-10-09] MEDS: AMIODARONE INJECTION 450 MG in D5W IV SOLUTION (EXCEL) 250 ML IV SCH (06:24)
--- NOTE | 2018-10-09 08:00 | Cardiology Progress Note ---
Subjective Date Seen by Provider: Oct 09, 2018 Time Seen by Provider: 07:58 Subjective/Events-last exam patient is sitting in bed, denied any chest pain, having mild discomfort with deep inspiration due to chest compression. Review of Systems General: No Chills, No Night Sweats, No Fatigue, No Malaise, No Appetite, No Other HEENT: No Head Aches, No Visual Changes, No Eye Pain, No Ear Pain, No Dysphasia , No Sinus Congestion, No Post Nasal Drip, No Sore Throat, No Other Pulmonary: No Dyspnea, No Cough, No Pleuritic Chest Pain, No Other Cardiovascular: Chest Pain; No: Palpitations, Orthopnea, Paroxysmal Noc. Dyspnea, Edema, Lt Headedness, Other Objective-Cardiology Exam Last Set of Vital Signs Vital Signs 10/08/18 10/09/18 10/09/18 10/09/18 17:58 02:00 06:00 07:00 Temp 98.9 Pulse 76 Resp 32 B/P (MAP) 121/83 (96) Pulse Ox 93 O2 Delivery Room Air O2 Flow Rate 3.00 Capillary Refill : Less Than 3 Seconds I&O Intake and Output 10/09/18 00:00 Intake Total 20 ml Balance 20 ml Intake IV Total 20 ml Daily Weight Change No General: Alert, Oriented X3, Cooperative HEENT: Atraumatic, PERRLA Neck: Supple, No JVD, No Thyromegaly Lungs: Clear to Auscultation, Normal Air Movement Heart: Regular Rate, Normal S1, Normal S2, No Murmurs Abdomen: Normal Bowel Sounds, Soft, No Tenderness, No Hepatosplenomegaly, No Masses Extremities: No Clubbing, No Cyanosis, No Edema, Normal Pulses, No Tenderness/ Swelling Skin: No Rashes, No Breakdown, No Significant Lesion Neuro: Normal Gait, Normal Speech, Strength at 5/5 X4 Ext, Normal Tone, Sensation Intact Psych/Mental Status: Mental Status NL, Mood NL Results Lab Laboratory Tests 10/08/18 18:08 10/09/18 03:35 A/P-Cardiology Admission Diagnosis Chest pain Ventricular tachycardia Hypotensive shock, cardiogenic shock Diabetes mellitus Assessment/Plan Chest pain, musculoskeletal secondary to chest compression Acute ST elevation myocardial infarction occurred in the emergency room while waiting for bed, emergency cardiac catheterization which showed total occlusion of the right coronary artery successful emergency intervention with deployment of 2 RICARDO stents to the right coronary artery proximally 3.012 mm expanded to 3.6 mm. Midportion 2.523 mm expanded proximally to 3.1 mm and distally 2.6 mm with excellent results, continue on aspirin and Brilinta for now Sudden cardiac , ventricular tachycardia, status post chest compression, epinephrine and shock, had another episode of ventricular tachycardia, started on amiodarone drip. Doing well at this time Diaphoresis and shortness of breath post code, feeling better at this time Nausea and vomiting, started on PPI. Hypotensive shock, cardiogenic shock, blood pressure is better at this point, continue to monitor Diabetes mellitus, diagnosed today. Hyperlipidemia, we will initiate statin Obesity, BMI 30, discussed weight loss and exercise after managing his [place] Questionable underlying sleep apnea, patient reported that he was tested in the past and it was negative Clinical Quality Measures DVT/VTE Risk/Contraindication: Risk Factor Score Per Nursin RFS Level Per Nursing on Admit: 3=High CAROLYN GALAVIZ MD Oct 09, 2018 08:00
[2018-10-09] MEDS: OMEGA 3 (FISH OIL) 1000 MG CAP PO SCH ×2 (08:12→17:13)
[2018-10-09] MEDS: meTOprolol TARTRATE 25 MG (LOPRESSOR) TABLET PO SCH ×2 (08:12→20:24)
[2018-10-09] MEDS: TICAGRELOR 90 MG TABLET (BRILINTA) PO SCH ×2 (08:12→20:24)
[2018-10-09] MEDS: ASPIRIN E.C. 81 MG (ECOTRIN) TAB PO SCH (08:13)
--- NOTE | 2018-10-09 08:56 | Consultation-Hospitalist ---
HPI History of Present Illness: HPI/Chief Complaint Pt is a 63yoCM with a PMH of depression, anxiety, and recently diagnosed NIDDMII who presented to the ER due to chest pain. He states he has had these symptoms on and off for the past year but they worsened yesterday while he was in the shower. When he rested it resolved but then last night it returned and he had jaw pain as well. He decided to call 911 and on arrival was given Nitro. This did help with his pain but caused some lightheadedness and bradycardia. Shortly after this he had a rhythm change on the monitor of apparent v-tach and CPR was initiated. compressions were started immediately and he received 1 200J shock and 1mg epi. He regain a pulse after this and he was taken emergently to the [facility] laborer where he had a total RCA occlusion which was stented. This morning he states he is doing well but has chest pain from the compressions. He otherwise has no concerns. Of note he saw his PCP, Dr Mingo Tyson, yesterday and was newly diagnosed with NIDDMII and metformin was started. He had no picked up the prescription yet though. Source: patient Exam Limitations: no limitations Date Seen 10/09/18 Attending Physician Phil Hughes MD PCP Mingo Tyson DO Referring Physician Date of Admission Oct 08, 2018 at 23:30 Home Medications & Allergies Home Medications Reviewed patient Home Medication Reconciliation performed by pharmacy medication reconciliations domestic technician and/or nursing. Patients Allergies have been reviewed. Allergies Allergies Coded Allergies Penicillins (Unverified Allergy, Mild, 10/08/18) clindamycin (Unverified Allergy, Mild, 10/08/18) Past Gctkypx-Vecvel-Rbqgcb Hx Past Med/Social Hx: Reviewed and Corrections made Patient Social History Marrital Status: Employed/Student: employed Alcohol Use: Denies Use Recreational Drug Use: No Smoking Status: Current Everyday Smoker (quit cigarettes in 2011 but continues to vape) Type Used: Cigarettes, Electronic/Vapor Physical Abuse Screen: No Sexual Abuse: No Recent Foreign Travel: No Contact w/other who traveled: No Recent Infectious Disease Expo: No Immunizations Up To Date Date of Influenza Vaccine: Jun 16, 2018 Past Medical History Surgeries: Orthopedic (Knee arthroscopy), Tonsillectomy Cardiac: Hypertension Reproductive: No Gastrointestinal: Gastroesophageal Reflux Endocrine: Diabetes, Non-Insulin dep Did You Recieve Any Treatments: No Psychosocial: Anxiety, Depression History of Blood Disorders: No Family History Reviewed Nursing Family Hx No Pertinent Family Hx Review of Systems Constitutional: no symptoms reported EENTM: other (jaw pain) Respiratory: no symptoms reported Cardiovascular: chest pain; No edema Gastrointestinal: no symptoms reported Genitourinary: no symptoms reported Musculoskeletal: no symptoms reported Skin: no symptoms reported Psychiatric/Neurological: Anxiety, Depressed Physical Exam Physical Exam Vital Signs Vital Signs - First Documented 10/08/18 10/08/18 17:58 19:05 Temp 98.9 Pulse 93 Resp 18 B/P (MAP) 153/103 (120) Pulse Ox 98 O2 Delivery Room Air O2 Flow Rate 2.00 Capillary Refill : Less Than 3 Seconds Height, Weight, BMI Height: 6'0.00" Weight: 335lbs. 0.0oz. 151.703445td; 45.4 BMI Method:Estimated General Appearance: No Apparent Distress, WD/WN, Obese HEENT: PERRL/EOMI, Normal ENT Inspection Neck: Normal Inspection Respiratory: Lungs Clear, Normal Breath Sounds, No Accessory Muscle Use, No Respiratory Distress Cardiovascular: Regular Rate, Rhythm, No Edema, No Murmur Gastrointestinal: Normal Bowel Sounds, Non Tender, Soft Back: Normal Inspection, No CVA Tenderness, No Vertebral Tenderness Extremity: Normal Capillary Refill, Non Tender, No Calf Tenderness, No Pedal Edema Neurologic/Psychiatric: Alert, Oriented x3, access services assistant II-XII Norm as Tested Skin: Normal Color, Warm/Dry, Tattoos/Piercings Lymphatic: No Adenopathy Results Results/Procedures Labs Laboratory Tests 10/08/18 18:08 10/09/18 03:35 Patient resulted labs reviewed. Imaging: Reviewed Imaging Report Assessment/Plan Assessment and Plan Assess & Plan/Chief Complaint STEMI Diagnosis/Problems Diagnosis/Problems (1) ST elevation SC (STEMI) Status: Acute Assessment & Plan: Underwent cardiac cath last night with total occlusion of RCA Stents deployed Management per Dr Ellen Hilario, ASA, statin Qualifiers: Involved coronary artery: right coronary artery Qualified Codes: I21.11 - ST elevation (STEMI) myocardial infarction involving right coronary artery (2) Cardiac arrest Status: Acute Assessment & Plan: Due to v-tach ACLS protocol followed by ER and ROSC obtained No indication for hypothermia as normal neurological status Continue on amio gtt (3) Cardiogenic shock Status: Acute Assessment & Plan: Was on dopamine overnight but now resolved Monitor BP closely (4) Non-insulin dependent type 2 diabetes mellitus Status: Chronic Assessment & Plan: Hold metformin SSI (5) Depression Assessment & Plan: Continue home meds Will need close outpatient follow up given baseline depression and current SC Qualifiers: Depression Type: major depressive disorder Major depression recurrence: recurrent Active/Remission status: remission status unspecified Qualified Codes: F33.9 - Major depressive disorder, recurrent, unspecified (6) Nicotine dependence Assessment & Plan: Quit cigarettes in 2011 but vapes Recommended cessation Qualifiers: Nicotine product type: unspecified Clinical Quality Measures DVT/VTE Risk/Contraindication: Risk Factor Score Per Nursin RFS Level Per Nursing on Admit: 3=High ADDIE SÁNCHEZ MD Oct 09, 2018 08:56
[2018-10-09] MEDS ORDERED: PANTOPRAZOLE 40 MG (PROTONIX) TAB PO SCH (09:00)
--- NOTE | 2018-10-09 11:19 | Diagnostic Imaging Report ---
CLINICAL INDICATION: Patient with dyspnea. EXAM: Portable chest x-ray upright view. COMPARISONS: Chest x-ray dated 10/08/2018. FINDINGS: Lungs/pleura: Lungs are clear. There is no pneumothorax. There is no pleural effusion. Mediastinum: Unremarkable. Pulmonary vasculature: Unremarkable. Heart: Unremarkable. Bones/extrathoracic soft tissue: There are mildly hypertrophic spurs involving the thoracic spine. IMPRESSION: There is no radiographic evidence of acute cardiopulmonary process. Dictated by: Dictated on workstation # [id number]
[2018-10-09] MEDS ORDERED: OMEP40CA36 PO (11:43)
[2018-10-09] MEDS ORDERED: ESCI10TA55 PO (11:43)
[2018-10-09] MEDS ORDERED: BUPR100T8 PO (11:43)
[2018-10-09] MEDS ORDERED: CLON1TAB13 PO (11:43)
[2018-10-09] MEDS ORDERED: METF500T8 PO (11:43)
[2018-10-09] MEDS ORDERED: clonazePAM 1 MG (KlonoPIN) TAB ONE (12:55)
[2018-10-09] MEDS: clonazePAM 1 MG (KlonoPIN) TAB PO SCH ×2 (12:58→20:24)
[2018-10-09] MEDS ORDERED: meTOprolol 5 MG/5 ML (LOPRESSOR) VIAL IV NR (20:00)
[2018-10-09] MEDS: PANTOPRAZOLE 40 MG (PROTONIX) TAB PO SCH (20:24)
[2018-10-09] MEDS ORDERED: NON-FORMULARY MEDICATION 1 EA EA (Clonazepam 1 MG) PO SCH (21:00)
[2018-10-09] MEDS ORDERED: NON-FORMULARY MEDICATION 1 EA EA (Omeprazole 40 MG) PO SCH (21:00)
[2018-10-09] MEDS ORDERED: ATORVASTATIN 80 MG (LIPITOR) TABLET PO SCH (21:00)
[2018-10-10] VITALS: BP 125/82
[2018-10-10 03:33] LABS: BASOPHILS % (AUTO) 0 % (0-10); EOSINOPHILS # (AUTO) 0.1 10^3/uL (0.0-0.3); EOSINOPHILS % (AUTO) 1 % (0-10); HEMATOCRIT 41 % (40-54); HEMOGLOBIN 14.1 G/DL (13.3-17.7); LYMPHOCYTES # (AUTO) 1.7 X 10^3 (1.0-4.0); LYMPHOCYTES % (AUTO) 20 % (12-44); MEAN CORPUSCULAR HEMOGLOBIN 30 PG (25-34); MEAN CORPUSCULAR HGB CONC 34 G/DL (32-36); MEAN CORPUSCULAR VOLUME 88 FL (80-99); MEAN PLATELET VOLUME 9.9 FL (7.4-10.4); MONOCYTES # (AUTO) 0.7 X 10^3 (0.0-1.0); MONOCYTES % (AUTO) 9 % (0-12); NEUTROPHILS # (AUTO) 5.8 X 10^3 (1.8-7.8); NEUTROPHILS % (AUTO) 70 % (42-75); PLATELET COUNT 218 10^3/uL (130-400); RED CELL DISTRIBUTION WIDTH 13.2 % (10.0-14.5); WHITE BLOOD COUNT 8.3 10^3/uL (4.3-11.0)
[2018-10-10 03:57] LABS: ALANINE AMINOTRANSFERASE 95 U/L (0-55); ALBUMIN 3.9 GM/DL (3.2-4.5); ALKALINE PHOSPHATASE 67 U/L (40-136); BILIRUBIN,TOTAL 0.9 MG/DL (0.1-1.0); BUN/CREATININE RATIO 13; CALCIUM 8.7 MG/DL (8.5-10.1); CARBON DIOXIDE 23 MMOL/L (21-32); CHLORIDE 103 MMOL/L (98-107); CREATININE SERUM 0.93 MG/DL (0.60-1.30); GFR ESTIMATED > 60; GLUCOSE 154 MG/DL (70-105); POTASSIUM 4.1 MMOL/L (3.6-5.0); SODIUM 136 MMOL/L (135-145); TOTAL PROTEIN 6.4 GM/DL (6.4-8.2)
[2018-10-10 04:00] VITALS: BP 142/92
--- NOTE | 2018-10-10 06:15 | Pulmonary Progress Note ---
Subjective Time Seen by a Provider: 06:14 Subjective/Events-last exam No complications noted. Sepsis Event Evaluation Height, Weight, BMI Height: 6'0.00" Weight: 336lbs. 0.0oz. 152.122567jl; 45.4 BMI Method:Estimated Exam Exam Vital Signs Date Time Temp Pulse Resp B/P (MAP) Pulse Ox O2 Delivery O2 Flow Rate FiO2 10/10/18 04:00 97.9 70 16 142/92 (109) 97 Room Air 10/10/18 01:00 72 10/10/18 00:00 75 16 125/82 (96) 97 Room Air 10/09/18 21:00 74 15 127/81 (96) 95 Room Air 10/09/18 20:28 80 21 133/89 (104) 90 Room Air 10/09/18 20:00 78 21 168/115 (132) 97 Room Air 10/09/18 20:00 94 Room Air 10/09/18 20:00 98.1 10/09/18 19:00 76 16 132/101 (111) 96 Room Air 10/09/18 19:00 76 10/09/18 18:00 70 29 167/111 (129) 96 Room Air 10/09/18 17:00 85 136/82 (100) 92 Room Air 10/09/18 16:00 94 Room Air 10/09/18 16:00 67 17 146/106 (119) 94 Room Air 10/09/18 15:00 71 19 143/98 (113) 94 Room Air 10/09/18 14:00 72 20 145/111 (122) 94 Room Air 10/09/18 13:00 70 18 159/113 (128) 96 Room Air 10/09/18 13:00 71 10/09/18 12:00 70 23 140/94 (109) 95 Room Air 10/09/18 12:00 97.6 10/09/18 12:00 95 Room Air 10/09/18 11:00 70 26 143/92 (109) 96 Room Air 10/09/18 10:00 67 8 165/111 (129) 95 Room Air 10/09/18 09:00 78 21 140/109 (119) 91 Room Air 10/09/18 08:00 95 Room Air 10/09/18 08:00 75 8 131/92 (105) 97 Room Air 10/09/18 07:00 73 15 135/99 (111) 94 Room Air 10/09/18 07:00 97.9 10/09/18 07:00 76 I & O 10/10/18 07:00 Intake Total 2410 ml Output Total 900 ml Balance 1510 ml Height & Weight Height: 6'0.00" Weight: 336lbs. 0.0oz. 152.303564lt; 45.4 BMI Method:Estimated General Appearance: No Apparent Distress, WD/WN, Obese HEENT: PERRL/EOMI, Normal ENT Inspection Neck: Normal Inspection Respiratory: Lungs Clear, Normal Breath Sounds, No Accessory Muscle Use, No Respiratory Distress Cardiovascular: Regular Rate, Rhythm, No Edema, No Murmur Capillary Refill: Less Than 3 Seconds Extremity: Normal Capillary Refill, Non Tender, No Calf Tenderness, No Pedal Edema Neurologic/Psychiatric: Alert, Oriented x3, greenhouse or nursery transplanter II-XII Norm as Tested Skin: Normal Color, Warm/Dry, Tattoos/Piercings Lymphatic: No Adenopathy Results Lab Laboratory Tests 10/08/18 18:08 10/09/18 03:35 10/10/18 03:20 Assessment/Plan Assessment/Plan STEMI s/p cath with stenting to RCA S/p Vtach, hypotension, cardiogenic shock s/p code blue/ACLS -Amio gtt-- off Amio now -Dopamine gtt - now off Obesity with probable WESTLEY -Will do out pt testing tobacco use/Vapor cigs -Education -Out pt testing -Pt will need ambulatory desat test prior to discharge. DM Pt is planning on discharge today. I will f/u with him as an out patient. LISA SOW DO Oct 10, 2018 06:15
[2018-10-10] MEDS: ASPIRIN E.C. 81 MG (ECOTRIN) TAB PO SCH (08:38)
[2018-10-10] MEDS: PANTOPRAZOLE 40 MG (PROTONIX) TAB PO SCH (08:38)
[2018-10-10] MEDS: clonazePAM 1 MG (KlonoPIN) TAB PO SCH (08:38)
[2018-10-10] MEDS: meTOprolol TARTRATE 25 MG (LOPRESSOR) TABLET PO SCH (08:38)
[2018-10-10] MEDS: OMEGA 3 (FISH OIL) 1000 MG CAP PO SCH (08:39)
[2018-10-10] MEDS: TICAGRELOR 90 MG TABLET (BRILINTA) PO SCH (08:39)
[2018-10-10] MEDS ORDERED: NON-FORMULARY MEDICATION 1 EA EA (Escitalopram Oxalate 10 MG) PO SCH (09:00)
[2018-10-10] MEDS ORDERED: buPROPion SR 100 MG (WELLBUTRIN SR) TAB PO SCH (09:00)
[2018-10-10] MEDS ORDERED: NON-FORMULARY MEDICATION 1 EA EA (Bupropion HCl (Bupropion HCl Sr) 100 MG) PO SCH (09:00)
[2018-10-10 10:05] VITALS: BP 144/90
--- NOTE | 2018-10-10 10:18 | Cardiology Progress Note ---
Subjective Date Seen by Provider: Oct 10, 2018 Time Seen by Provider: 10:17 Subjective/Events-last exam Patient is sitting up in bed, no new complaints. Denies any chest pain or dyspnea, asking to go home. Objective-Cardiology Exam Last Set of Vital Signs Vital Signs 10/10/18 10:05 Pulse 78 Resp 18 B/P (MAP) 144/90 (108) Pulse Ox 98 O2 Delivery Room Air Capillary Refill : Less Than 3 Seconds I&O Intake and Output 10/10/18 00:00 Intake Total 2410 ml Output Total 1400 ml Balance 1010 ml Intake Oral 2290 ml IV Total 120 ml Output Urine Total 1400 ml General: Alert, Oriented X3, Cooperative HEENT: Atraumatic, PERRLA Neck: Supple, No JVD, No Thyromegaly Lungs: Clear to Auscultation, Normal Air Movement Heart: Regular Rate, Normal S1, Normal S2, No Murmurs Abdomen: Normal Bowel Sounds, Soft, No Tenderness, No Hepatosplenomegaly, No Masses Extremities: No Clubbing, No Cyanosis, No Edema, Normal Pulses, No Tenderness/ Swelling Skin: No Rashes, No Breakdown, No Significant Lesion Neuro: Normal Gait, Normal Speech, Strength at 5/5 X4 Ext, Normal Tone, Sensation Intact Psych/Mental Status: Mental Status NL, Mood NL Results Lab Laboratory Tests 10/10/18 03:20 A/P-Cardiology Admission Diagnosis Chest pain Ventricular tachycardia Hypotensive shock, cardiogenic shock Diabetes mellitus Assessment/Plan Chest pain, musculoskeletal secondary to chest compression Acute ST elevation myocardial infarction occurred in the emergency room while waiting for bed, emergency cardiac catheterization which showed total occlusion of the right coronary artery successful emergency intervention with deployment of 2 RICARDO stents to the right coronary artery proximally 3.012 mm expanded to 3.6 mm. Midportion 2.523 mm expanded proximally to 3.1 mm and distally 2.6 mm with excellent results, continue on aspirin and Brilinta Sudden cardiac , ventricular tachycardia, status post chest compression, epinephrine and shock, had another episode of ventricular tachycardia, started on amiodarone drip. Doing well at this time Diaphoresis and shortness of breath post code, improved Nausea and vomiting, started on PPI. Patient reports improvement. Hypotensive shock, cardiogenic shock, blood pressure is better at this point, continue to monitor Diabetes mellitus, diagnosed today. Hyperlipidemia, we will initiate statin Obesity, BMI 30, discussed weight loss and exercise after managing his [place] Questionable underlying sleep apnea, patient reported that he was tested in the past and it was negative Clinical Quality Measures DVT/VTE Risk/Contraindication: Risk Factor Score Per Nursin RFS Level Per Nursing on Admit: 3=High DOMITILA HICKS Oct 10, 2018 10:18
--- NOTE | 2018-10-10 10:40 | Discharge Summary ---
DOMITILA HICKS 10/10/18 1040: Diagnosis/Chief Complaint Date of Admission Oct 08, 2018 at 23:30 Date of Discharge Discharge Date: Oct 10, 2018 Discharge Time: 10:38 Admission Diagnosis Admission Diagnosis Chest pain Ventricular tachycardia Hypotensive shock, cardiogenic shock Diabetes mellitus Discharge Diagnosis Chest pain, musculoskeletal secondary to chest compression Acute ST elevation myocardial infarction occurred in the emergency room while waiting for bed, emergency cardiac catheterization which showed total occlusion of the right coronary artery successful emergency intervention with deployment of 2 RICARDO stents to the right coronary artery proximally 3.012 mm expanded to 3.6 mm. Midportion 2.523 mm expanded proximally to 3.1 mm and distally 2.6 mm with excellent results, continue on aspirin and Brilinta for now Sudden cardiac , ventricular tachycardia, status post chest compression, epinephrine and shock, had another episode of ventricular tachycardia, started on amiodarone drip. Doing well at this time Diaphoresis and shortness of breath post code, feeling better at this time Nausea and vomiting, started on PPI. Hypotensive shock, cardiogenic shock, blood pressure is better at this point, continue to monitor Diabetes mellitus, diagnosed today. Hyperlipidemia, we will initiate statin Obesity, BMI 30, discussed weight loss and exercise after managing his MS Questionable underlying sleep apnea, patient reported that he was tested in the past and it was Reason Hospital Visit 63 years old gentleman recently diagnosed with diabetes mellitus, history of hypertension and tobaccoism. Has been having recurrent chest pain for the past year on and off. Became worse today and called ambulance and brought to the emergency room, given sublingual nitroglycerin with appropriate relief of his chest pain. He was waiting for bed in the emergency room when he had an episode of syncope and had a ventricular tachycardia, received epinephrine and chest compression and a shock. Restored sinus rhythm, patient was having nausea and vomiting. Denied any active chest pain, was diaphoretic, postcode EKG showed ST elevation in the inferior lead which was not present on arrival to the emergency room Discharge Summary Hospital Course Labs Laboratory Tests 10/08/18 18:08: Glucose Level 130H, Myoglobin 106.6H 10/09/18 03:35: Glucose Level 222H, White Blood Count 11.2H, Neutrophils (%) (Auto) 86H, Lymphocytes (%) (Auto) 9L, Neutrophils # (Auto) 9.6H, Carbon Dioxide Level 20L, Calcium Level 8.4L, Troponin I 19.681*H 10/09/18 11:34: Glucometer 205H 10/10/18 03:20: Glucose Level 154H, Aspartate Amino Transf (AST/SGOT) 184H, Alanine Aminotransferase (ALT/SGPT) 95H Procedures None. Discharge Physical Examination Allergies: Coded Allergies: Penicillins (Unverified Allergy, Mild, 10/08/18) clindamycin (Unverified Allergy, Mild, 10/08/18) Vitals & I&Os Vital Signs Date Time Temp Pulse Resp B/P (MAP) Pulse Ox O2 Delivery O2 Flow Rate FiO2 10/10/18 10:05 78 18 144/90 (108) 98 Room Air 10/10/18 08:00 98.3 10/09/18 04:00 3.00 Discharge Home Medications Reviewed and agree with Discharge Medication list on patient's Discharge Instruction sheet Instructions to Patient/Family Please see electronic discharge instructions given to patient. Clinical Quality Measures DVT/VTE Risk/Contraindication: Risk Factor Score Per Nursin RFS Level Per Nursing on Admit: 3=High CAROLYN GALAVIZ MD 10/10/18 1117: Diagnosis/Chief Complaint Discharge Diagnosis Chest pain Coronary artery disease Hypertension Hyperlipidemia Non-ST elevation myocardial infarction Discharge Summary Hospital Course Hospital Course Chest pain, musculoskeletal secondary to chest compression Acute ST elevation myocardial infarction occurred in the emergency room while waiting for bed, emergency cardiac catheterization which showed total occlusion of the right coronary artery successful emergency intervention with deployment of 2 RICARDO stents to the right coronary artery proximally 3.012 mm expanded to 3.6 mm. Midportion 2.523 mm expanded proximally to 3.1 mm and distally 2.6 mm with excellent results, continue on aspirin and Brilinta for now Sudden cardiac , ventricular tachycardia, status post chest compression, epinephrine and shock, had another episode of ventricular tachycardia, started on amiodarone drip. Doing well at this time Diaphoresis and shortness of breath post code, feeling better at this time Nausea and vomiting, started on PPI. Hypotensive shock, cardiogenic shock, blood pressure is better Diabetes mellitus, managed by primary care physician Hyperlipidemia, started on Lipitor Obesity, BMI 30, discussed weight loss and exercise Questionable underlying sleep apnea, patient reported that he was tested in the past and it was negative Discharge Physical Examination Allergies: Coded Allergies: Penicillins (Unverified Allergy, Mild, 10/08/18) clindamycin (Unverified Allergy, Mild, 10/08/18) General Appearance: Alert, Oriented X3, Cooperative, No Acute Distress HEENT: Atraumatic, PERRLA Respiratory: Clear to Auscultation, Normal Air Movement Cardiovascular: Regular Rate, Normal S1, Normal S2, No Murmurs Abdominal: Normal Bowel Sounds, Soft, No Tenderness, No Hepatosplenomegaly, No Masses Extremities: No Clubbing, No Cyanosis, No Edema, Normal Pulses, No Tenderness/ Swelling Skin: No Rashes, No Breakdown, No Significant Lesion Neuro: Normal Gait, Normal Speech, Strength at 5/5 X4 Ext, Normal Tone, Sensation Intact, Cranial Nerves 3-12 NL, Reflexes 2+ Psych/Mental Status: Mental Status NL, Mood NL Clinical Quality Measures Admission Status Admission Status: Inpatient Order (span 2 midnights) Reason for Inpatient Admission: Acute myocardial infarction Coronary artery disease DOMITILA HICKS Oct 10, 2018 10:40 CAROLYN GALAVIZ MD Oct 10, 2018 11:17
[2018-10-10] MEDS ORDERED: OMG1KC PO (10:46)
[2018-10-10] MEDS ORDERED: ATOR80TA76 PO (10:46)
[2018-10-10] MEDS ORDERED: TICA90TA PO (10:46)
[2018-10-10] MEDS ORDERED: METO-333 PO (10:46)
[2018-10-10] MEDS ORDERED: ASPI-983 PO (10:46)
--- NOTE | 2018-10-10 11:08 | Discharge Inst-Post CATH ---
Discharge Inst-CATH/EP Post Cardiac Cath/EP D/C Inst Follow Up/Plan Appointment with Dr Hughes's office in 1-2 weeks Hold Metformin for 48 hours CARDIAC CATH DISCHARGE INSTRUCTIONS *Hold Metformin for 48 hours post heart cath. ACTIVITY * Go Home directly and rest. * Limit activity of the leg (or wrist if it was used) for 7 days including aerobics, swimming, jogging, bicycling, etc. * Restrict stair-climbing for 7 days if possible, if not, climb up with your non -cath leg, then bring together on the same step. * Avoid lifting, pushing, pulling or excessive movement of the affected extremity for 7 days. * Customary sexual activity may be resumed after 2 days-use caution not to use a position that strains or causes pain to the affected extremity. * No driving for 24 hours. * NO SMOKING. * Avoid straining for bowel movements for 7 days. * Gentle walking on level ground is allowed. * Returning to work will depend on the type of procedure and the results. Your doctor will discuss this with you. CALL YOUR DOCTOR FOR ANY OF THE FOLLOWING: *If bleeding from the puncture site occurs- Apply gentle pressure to site with clean cloth and call your doctor or EMS. * If a knot or lump forms under the skin, increases in size, or causes pain. * If bruising appears to be worsening or moving further down your leg instead of disappearing. * Temperature above 101 F. CARE OF YOUR GROIN INCISION; * Bruising or purple discoloration of the skin near the puncture site is common. * You may shower only, no bathtub bathing for 5 days. Be careful to avoid slipping as your leg may feel stiff. * If a closure device was used on your femoral artery, please see the attached guide regarding care of the device and your leg. * Leave the dressing on, until removed by office staff. CARE OF YOUR WRIST INCISION; * Bruising or purple discoloration of the skin near the puncture site is common. * You may shower. * DO NOT submerge wrist. * Leave dressing on, until removed by office staff.. CAROLYN HUGHES MD Oct 10, 2018 11:08
[2018-10-10 12:00] VITALS: BP 141/88
[2018-10-10 14:01] VITALS: BP 142/86
== END 2018-10-10 14:25 | disposition home or self-care (01) | DRG 246 ==
LOC: ER 17:54 → UNDOADMOB 19:55 → 4TH 19:55 → CATH 21:00 → ICU 22:41 → CATH 23:30 → ICU 23:30
PROVIDERS: ADMIT Internal Medicine Cardiovascular Disease; ATTEND Internal Medicine Cardiovascular Disease
PROC: 027035Z Dilation of Coronary Artery, One Artery with Two Drug-eluting Intraluminal Devices, Percutaneous Approach (ICD-10-PCS; principal; 2018-10-08)
PROC: 4A023N7 Measurement of Cardiac Sampling and Pressure, Left Heart, Percutaneous Approach (ICD-10-PCS; 2018-10-08)
PROC: B2111ZZ Fluoroscopy of Multiple Coronary Arteries using Low Osmolar Contrast (ICD-10-PCS; 2018-10-08)
PROC: B2151ZZ Fluoroscopy of Left Heart using Low Osmolar Contrast (ICD-10-PCS; 2018-10-08)
PROC: 5A12012 Performance of Cardiac Output, Single, Manual (ICD-10-PCS; 2018-10-08)
DX: I21.19 ST elevation (STEMI) myocardial infarction involving other coronary artery of inferior wall (principal); I47.2 Ventricular tachycardia; I46.2 Cardiac arrest due to underlying cardiac condition; R57.8 Other shock; F33.9 Major depressive disorder, recurrent, unspecified; I25.10 Atherosclerotic heart disease of native coronary artery without angina pectoris; R07.89 Other chest pain; E11.9 Type 2 diabetes mellitus without complications; E78.5 Hyperlipidemia, unspecified; E66.9 Obesity, unspecified; Z68.30 Body mass index [BMI] 30.0-30.9, adult; I10 Essential (primary) hypertension; G47.30 Sleep apnea, unspecified; F12.90 Cannabis use, unspecified, uncomplicated; F41.9 Anxiety disorder, unspecified; Z79.84 Long term (current) use of oral hypoglycemic drugs; K21.9 Gastro-esophageal reflux disease without esophagitis; Z88.0 Allergy status to penicillin; Z88.1 Allergy status to other antibiotic agents
CPT/HCPCS: 36415; 71045; 80048; 80053; 80061; 82150; 82962; 83690; 83735; 83874; 83880; 84100; 84484; 85025; 85027; 85347; 85379; 85610; 85730; 87081; 93005; 93041; 93458; 96374; 96375

== ENCOUNTER 2018-11-26 06:00 | Outpatient (RCR) | payer BC ==
[~2018-11-26 06:00] MED LIST changes: -AMIODARONE (OMNICELL DRIP KIT) 150 MG/3 ML IV ONE; -AMIODARONE 450 MG/9 ML (CORDARONE) VIAL IV ONE; +ASPI-983 PO; +ATOR80TA76 PO; +BUPR100T8 PO; +CLON1TAB13 PO; -D5W 250 ML (EXCEL) BAG IV ONE; +ESCI10TA55 PO; -HEParin (CATH LAB) 2,000 UNIT/1,000 ML BAG IV ONE; -LIDOCAINE 1% INJ 20 ML 20 ML VIAL INJ ONE; +METF500T8 PO; +METO-333 PO; -NS 1000 ML IV BAG IV ONE; +OMEP40CA36 PO; +OMG1KC PO; +TICA90TA PO
== END 2018-11-30 | disposition home or self-care (01) ==
LOC: CR3 06:00
PROVIDERS: ATTEND Internal Medicine Cardiovascular Disease
DX: Z29.8 Encounter for other specified prophylactic measures (principal)

== ENCOUNTER → 2018-12-14 | Outpatient (CLI) | payer BC ==
--- NOTE | 2018-12-14 17:23 | Diagnostic Imaging Report ---
EXAM: Right upper quadrant ultrasound. DATE: December 14, 2018. COMPARISON: None. INDICATION: 63-year-old male, abdominal pain. PROCEDURE: Two-dimensional grayscale and color doppler ultrasound examination of the right upper quadrant is performed. FINDINGS: Liver: The liver is diffusely increased in echogenicity consistent with diffuse fatty infiltration of the liver. There is no sonographically demonstrated solid or cystic liver lesion. Bile ducts and gallbladder: There are multiple shadowing gallstones. The gallbladder is not distended. There is no pericholecystic fluid. The gallbladder wall measures 0.3 cm. There is no demonstrated intrahepatic bile duct dilation. The common bile duct is not well demonstrated. Right kidney: Unremarkable right kidney. No hydronephrosis. The right kidney measures 10.5 cm x 5.4 cm x 6.2 cm. Pancreas: The pancreas is not well seen. IMPRESSION: 1. Cholelithiasis without evidence of acute cholecystitis. 2. No demonstrated intrahepatic bile duct dilation. The common bile duct is not able to be demonstrated. 3. The pancreas is not well seen. 4. Diffuse fatty infiltration of the liver. Dictated on workstation # [id number]
== END ==
LOC: RAD 06:59
PROVIDERS: ATTEND Nurse Practitioner Family
DX: K80.20 Calculus of gallbladder without cholecystitis without obstruction (principal); K76.0 Fatty (change of) liver, not elsewhere classified
CPT/HCPCS: 76705

== ENCOUNTER → 2019-05-01 | Outpatient (CLI) | payer BC ==
[~2019-05-01] VITALS: Ht 182 cm; Wt 150.0 kg
[~2019-05-01] MED LIST changes: +CATHETER FLUSH 10 ML SYR IV PRN
[2019-05-01 09:45] VITALS: BP 133/83
[2019-05-01 09:59] VITALS: BP 210/86
--- NOTE | 2019-05-01 17:46 | STRESS TEST ---
DATE OF SERVICE: 05/01/2019 EXERCISE MYOVIEW STRESS TEST REPORT REFERRING PHYSICIAN: . Baseline heart rate is 92. Baseline blood pressure 154/82. Baseline EKG is sinus rhythm with no ischemic changes. In summary, the patient was injected with 9.87 mCi of technetium-99 Myoview and the resting images were obtained. Then, the patient started exercising with a baseline heart rate, blood pressure and EKG mentioned above. The patient was able to exercise for 3 minutes on standard Claude protocol. With peak exercise level, was showing minimal nondiagnostic changes. The resting and stress images were reviewed and compared in the short axis, horizontal long axis, and vertical long axis views. Review of the images showed diaphragmatic attenuation with questionable reversible ischemia involving the mid to apical inferior wall and inferoseptum. SSS is 7, SDS 7, TID value 1.19. On the gated images, the left ventricle appeared to be normal size with normal contractility. Calculated ejection fraction 51%. CONCLUSION: 1. Poor exercise tolerance, a total of 3 minutes on standard Claude protocol, a total of 4.6 METS achieving 92% of maximum expected heart rate. 2. Severe hypertensive response to exercise with peak blood pressure 244/115. Returned to baseline during recovery. 3. Nondiagnostic EKG changes with exercise returned to baseline during recovery. 4. Diaphragmatic attenuation with questionable ischemia involving the mid to apical inferior wall and inferoseptum. 5. Normal left ventricular size with normal contractility. Calculated ejection fraction 51%. Job ID: [id number] DocumentID: [id number] Dictated Date: 05/01/2019 17:30:18 Medical Administrative Assistant Date: 05/01/2019 17:44:39 Dictated By: CAROLYN GALAVIZ MD
== END ==
LOC: CARD 07:43
PROVIDERS: ATTEND Internal Medicine Cardiovascular Disease
DX: I25.10 Atherosclerotic heart disease of native coronary artery without angina pectoris (principal); E11.9 Type 2 diabetes mellitus without complications; I10 Essential (primary) hypertension; E78.2 Mixed hyperlipidemia
CPT/HCPCS: 78452; 93017

== ENCOUNTER 2019-05-08 06:51 | Day surgery (SDC) | payer BC ==
[~2019-05-08] VITALS: Ht 183 cm; Wt 150.0 kg
[2019-05-08] VITALS (8 sets, daily range): BP systolic 96–164; BP diastolic 62–100
[~2019-05-08 06:51] MED LIST changes: -CATHETER FLUSH 10 ML SYR IV PRN
[2019-05-08] MEDS ORDERED: HEParin (CATH LAB) 2,000 ML IV ONE (06:57)
[2019-05-08] MEDS ORDERED: NS IV 1000 ML 1,000 ML ONE (06:57)
[2019-05-08] MEDS ORDERED: LIDOCAINE 1% INJ 20 ML 20 ML VIAL ONE (06:57)
[2019-05-08] MEDS ORDERED: NS IV 1000 ML 1,000 ML IV SCH ×2 (07:00→08:55)
[2019-05-08 07:21] LABS: HEMOGLOBIN 16.2 G/DL (13.3-17.7); RED CELL DISTRIBUTION WIDTH 13.2 % (10.0-14.5); WHITE BLOOD COUNT 6.6 10^3/uL (4.3-11.0)
[2019-05-08 07:28] LABS: BILIRUBIN,URINE NEGATIVE (NEGATIVE); CLARITY,URINE CLEAR; COLOR,URINE YELLOW; GLUCOSE, URINE (UA) 4+ (NEGATIVE); KETONES,URINE NEGATIVE (NEGATIVE); LEUKOCYTE ESTERASE ,URINE NEGATIVE (NEGATIVE); NITRITE,URINE NEGATIVE (NEGATIVE); PH,URINE 5 (5-9); PROTEIN,URINE NEGATIVE (NEGATIVE)
[2019-05-08 07:33] LABS: INR 0.9 (0.8-1.4); PROTHROMBIN TIME PATIENT 12.6 SEC (12.2-14.7)
[2019-05-08 07:34] LABS: BACTERIA,URINE NEGATIVE /HPF; SQUAMOUS EPITHELIAL CELL,UR RARE /HPF
[2019-05-08 07:39] LABS: ALANINE AMINOTRANSFERASE 27 U/L (0-55); ALBUMIN 4.3 GM/DL (3.2-4.5); ALKALINE PHOSPHATASE 122 U/L (40-136); BILIRUBIN,TOTAL 0.6 MG/DL (0.1-1.0); BUN/CREATININE RATIO 15; CALCIUM 9.3 MG/DL (8.5-10.1); CARBON DIOXIDE 27 MMOL/L (21-32); CHLORIDE 101 MMOL/L (98-107); CHOLESTEROL 121 MG/DL (< 200); CREATININE SERUM 0.99 MG/DL (0.60-1.30); GFR ESTIMATED > 60; GLUCOSE 198 MG/DL (70-105); HDL CHOLESTEROL 50 MG/DL (40-60); SODIUM 138 MMOL/L (135-145); TOTAL PROTEIN 7.8 GM/DL (6.4-8.2); TRIGLYCERIDES 131 MG/DL (<150); VLDL CHOLESTEROL 26 MG/DL (5-40)
[2019-05-08] MEDS ORDERED: CLOP75TA28 PO (07:42)
[2019-05-08] MEDS ORDERED: COLE625T9 PO (07:42)
[2019-05-08] MEDS ORDERED: DICY20TA10 PO (07:42)
[2019-05-08] MEDS ORDERED: ATOR80TA76 PO (07:42)
[2019-05-08] MEDS ORDERED: METO-333 PO (07:42)
[2019-05-08] MEDS ORDERED: ASPI-983 PO (07:42)
[2019-05-08] MEDS ORDERED: fentaNYL INJECTION 100 MCG/2 ML AMP ONE (07:44)
[2019-05-08] MEDS ORDERED: VERAPAMIL 5 MG/2 ML (CALAN) VIAL IV ONE (07:44)
[2019-05-08] MEDS ORDERED: MIDAZOLAM 5 MG/5 ML (VERSED) VIAL ONE (07:44)
[2019-05-08] MEDS ORDERED: NITRO DRIP 25000 MCG/D5W 250 ML IV ONE (07:45)
[2019-05-08] MEDS ORDERED: UBID100C17 PO (07:45)
[2019-05-08] MEDS ORDERED: CYAN250010 PO (07:45)
[2019-05-08] MEDS ORDERED: ACET-93 PO (07:45)
[2019-05-08] MEDS ORDERED: OMG1KC PO (07:45)
[2019-05-08] MEDS ORDERED: HEParin 1000 UNIT/ML (10ML VIAL) FOR BOLUS ONE (07:45)
[2019-05-08] MEDS ORDERED: FLU QUADRIvalent (5+ YOA) 2019-2020 (AFLURIA) 0.5 ML IM ONE (07:45)
--- NOTE | 2019-05-08 08:12 | NUR ---
SPOKE WITH PT (HE HAD HIS BOTTLES) WELL CALLING [facility] TO COMPLETE THE MED REC. THE PT WAS ABLE TO TELL ME HOW/WHEN HE TAKES ALL HIS MEDICATIONS. THE FOLLOWING ARE FILL DATES FROM [facility]: 04-19-2019 OMEPRAZOLE #60/30DS 04-19-2019 BUPROPION #60/30DS 04-22-2019 CLONAZEPAM #60/30DS 05-07-2019 METOPROLOL #30/30DS 05-07-2019 DICYCLOMINE #60 05-07-2019 WELCHOL #30/30DS 05-07-2019 ATORVASTATIN #30/30DS 05-07-2019 ESCITALOPRAM #30/30DS 05-07-2019 CLOPIDOGREL #30/30DS OTC MEDS: TYLENOL: 2 Q 8 H PRN ASPIRIN 81M DAILY COQ10: 1 HS B-12: 1 DAILY FISH OIL: 1 PM
--- NOTE | 2019-05-08 08:19 | Diagnostic Imaging Report ---
INDICATION: Pre-heart catheterization. Time of exam 7:44 AM Correlation is made with prior chest from 10/09/2018. The heart size is normal. The pulmonary vascularity is unremarkable. The lungs are clear. No infiltrate, effusion or pneumothorax is detected. Impression: No acute cardiopulmonary process is detected. Dictated by: Dictated on workstation # [id number]
--- NOTE | 2019-05-08 08:55 | Cardiac Procedure Note-CS/ASA ---
Pre-Procedure Note Pre-Op Procedure Note H&P Reviewed The H&P was reviewed, patient examined and no changes noted. Date H&P Reviewed: May 08, 2019 Time H&P Reviewed: 08:54 Conscious Sedation Pre-Proced Time 08:54 ASA Score 3 For ASA 3 and 4: Consider anesthesia and medical clearance. Also, for patients with a history of failed moderate sedation consider anesthesia. Airway Lungs Heart ASA score ASA 1: a normal healthy patient ASA 2: a patient with a mild systemic disease (mid diabetes, controlled hypertension, obesity x ASA 3: a patient with a severe systemic disease that limits activity (angina, COPD, prior Myocardial infarction) ASA 4: a patient with an incapacitating disease that is a constant threat to life (CHF, renal failure) ASA 5: a moribund patient not expected to survive 24 hrs. (ruptured aneurysm) ASA 6: a declared brain- patient whose organs are being harvested. For emergent operations, add the letter E after the classification Mallampati Classification Grade 3 Sedation Plan Analgesia, Amnesia, Plan communicated to team members, Discussed options with patient/fam, Discussed risks with patient/fam The patient is an appropriate candidate to undergo the planned procedure, sedation, and anesthesia. The patient immediately re-assessed prior to indication. CAROLYN GALAVIZ MD May 08, 2019 08:55
--- NOTE | 2019-05-08 09:00 | Discharge Inst-Post CATH ---
Discharge Inst-CATH/EP Problems Reviewed?: Yes Post Cardiac Cath/EP D/C Inst Follow Up/Plan Appointment with Dr. Hughes's office in 2-4 weeks <b>CARDIAC CATH/EP PROCEDURE DISCHARGE INSTRUCTIONS</b> ACTIVITY * Go Home directly and rest. * Limit activity of the leg (or wrist if it was used) for 7 days including aerobics, swimming, jogging, bicycling, etc. * Restrict stair-climbing for 7 days if possible, if not, climb up with your non-cath leg, then bring together on the same step. * Avoid lifting, pushing, pulling or excessive movement of the affected extremity for 7 days. * Customary sexual activity may be resumed after 2 days-use caution not to use a position that strains or causes pain to the affected extremity. * No driving for 24 hours. * NO SMOKING. * Avoid straining for bowel movements for 7 days. * Gentle walking on level ground is allowed. * Returning to work will depend on the type of procedure and the results. Your doctor will discuss this with you. CALL YOUR DOCTOR FOR ANY OF THE FOLLOWING: *If bleeding from the puncture site occurs- Apply gentle pressure to site with clean cloth and call your doctor or EMS. * If a knot or lump forms under the skin, increases in size, or causes pain. * If bruising appears to be worsening or moving further down your leg instead of disappearing. * Temperature above 101 F. CARE OF YOUR GROIN INCISION; * Bruising or purple discoloration of the skin near the puncture site is common. * You may shower only, no bathtub bathing for 5 days. Be careful to avoid slipping as your leg may feel stiff. * If a closure device was used on your femoral artery, please see the attached guide regarding care of the device and your leg. * Leave dressing on FOR 24 hours. CARE OF YOUR WRIST INCISION; * Bruising or purple discoloration of the skin near the puncture site is common. * You may shower. * DO NOT submerge wrist. * Leave dressing on FOR 24 hours. CAROLYN HUGHES MD May 08, 2019 09:00
--- NOTE | 2019-05-08 09:05 | Cardiac Cath Report ---
Cardiac Cath Report Physician (s)/Cds Sales Advisor (s) Physician CAROLYN GALAVIZ MD Pre-Procedure Diagnosis Pre-Procedure Diagnosis: Coronary artery disease Post-Procedure Note Procedure Start Date: May 08, 2019 Name of Procedure: [facility] Findings/Procedure Note PROCEDURE NOTE: 63 years old gentleman with history of coronary artery disease had myocardial infarction in September 2018 with emergency stenting to the right coronary artery had an abnormal stress test with inferior wall ischemia scheduled for cardiac catheterization possible PTCA. After explaining the procedure to the patient, all pros and cons were explained, all questions were answered. The patient signed the consent and then he was placed on the cardiac catheterization laboratory. Groin was prepped SL fashion local anesthesia was used. Sheath placed in the right radial artery, [place] catheter was advanced to the left ventricular cavity, pressure was measured, pullback LV to aorta was done, intubated selectively the right and left coronary system and angiogram was done. At the end of the procedure the sheath was removed. vascular band was used FINDINGS: Hemodynamics LV 116/15, end-diastolic pressure of 15 Aorta 117/76 mean of 87 ANATOMY: Left Main is free of obstructive disease Left Anterior Descending has mild to moderate disease at the midportion nonobstructive disease Left Circumflex has mild disease nonobstructive disease Right Coronory Artery has patent stent at the proximal and midportion, the artery tapered down into a very small artery distally, nonobstructive disease LV Gram was not done pressure was measured CONCLUSION: 1. Patent stent in the proximal and midright coronary artery than the artery tapered down into a very small artery distally nonobstructive disease 2. Mild to moderate disease at the mid LAD nonobstructive disease 3. Normal left ventricular end-diastolic pressure DISCUSSION AND RECOMMENDATION: abnormal stress Test is due to small vessel disease, medical therapy is recommended no intervention is needed Anesthesia Type: Conscious Sedation Estimated blood loss (mL): 5 ml Contrast Amount: 40 ml Total Radiation Dose: 477 mGy Post-Procedure Diagnosis Post-operative diagnosis: Coronary artery disease Hypertension Hyperlipidemia Chest pain CAROLYN GALAVIZ MD May 08, 2019 09:04
== END 2019-05-08 11:59 ==
LOC: CATH 06:51 → SDC 09:15 → CATH 11:59
PROVIDERS: ATTEND Internal Medicine Cardiovascular Disease
DX: I25.10 Atherosclerotic heart disease of native coronary artery without angina pectoris (principal); I10 Essential (primary) hypertension; E11.9 Type 2 diabetes mellitus without complications; E78.2 Mixed hyperlipidemia; I21.9 Acute myocardial infarction, unspecified; E66.01 Morbid (severe) obesity due to excess calories; Z68.41 Body mass index [BMI] 40.0-44.9, adult; Z88.1 Allergy status to other antibiotic agents; Z79.02 Long term (current) use of antithrombotics/antiplatelets; Z79.82 Long term (current) use of aspirin; Z87.891 Personal history of nicotine dependence; Z79.899 Other long term (current) drug therapy; Z88.0 Allergy status to penicillin
CPT/HCPCS: 36415; 71045; 80053; 80061; 81000; 85027; 85610; 85730; 87081; 93458

== ENCOUNTER 2019-06-27 05:52 | Outpatient (CLI) | payer BC ==
[~2019-06-27] VITALS: Ht 182.9 cm; Wt 149.5 kg
[~2019-06-27 05:52] MED LIST changes: +ACET-93 PO; +CLOP75TA28 PO; +COLE625T9 PO; +CYAN250010 PO; +DICY20TA10 PO; +UBID100C17 PO
[2019-06-28] MEDS ORDERED: ACHD5005 PO (10:04)
== END 2019-06-27 09:54 ==
LOC: PREOP 05:52
PROVIDERS: ATTEND Surgery
DX: Z01.818 Encounter for other preprocedural examination (principal)

== ENCOUNTER → 2020-11-13 | Outpatient (CLI) | payer MEDICARE ==
[~2020-11-13] MED LIST changes: +ACHD5005 PO; +ASPI-1238 PO; -ASPI-983 PO; +ESCI-2 PO; -ESCI10TA55 PO; +METF-865 PO; -METF500T8 PO; +OMEP40CA27 PO; -OMEP40CA36 PO
== END ==
LOC: CARD 11:27
PROVIDERS: ATTEND Internal Medicine Cardiovascular Disease
DX: I10 Essential (primary) hypertension (principal)